=== PATIENT | male | born 1935 | race Caucasian/White ===

== ENCOUNTER 2024-02-17 01:54 | Inpatient (IN) | payer MEDICARE ==
[2024-02-17 04:45] LABS: BASOPHILS PERCENT AUTO 0.1 % (0.1-1.3); HEMATOCRIT 36.2 % (38.4-49.7); HEMOGLOBIN 13.1 g/dL (12.9-16.9); IMMATURE GRAN ABSOLUTE AUTO 0.08 K/uL (0.00-0.23); IMMATURE GRAN PERCENT AUTO 1.1 % (0.0-0.7); LYMPHOCYTES ABSOLUTE AUTO 0.56 K/uL (0.8-3.3); LYMPHOCYTES PERCENT AUTO 7.9 % (11.4-47.7); MEAN CORPUSCULAR HEMOGLOBIN 36.4 pg (31.6-35.5); MEAN CORPUSCULAR HGB CONC 36.2 g/dL (31.6-35.5); MEAN CORPUSCULAR VOLUME 100.6 fL (81.4-99.0); MONOCYTES ABSOLUTE AUTO 0.82 K/uL (0.20-0.90); MONOCYTES PERCENT AUTO 11.5 % (3.3-12.6); NEUTROPHILS ABSOLUTE AUTO 5.64 K/uL (1.0-7.6); NEUTROPHILS PERCENT AUTO 79.4 % (40.0-78.1); PLATELET COUNT,PLT 83 K/uL (130-375); WHITE BLOOD CELL COUNT,WBC 7.1 K/uL (3.2-11.0)
[2024-02-17 04:50] LABS: APPEARANCE,URINE SLIGHTLY CLOUDY (CLEAR); BILIRUBIN,URINE NEGATIVE (NEGATIVE); COLOR,URINE YELLOW (YELLOW); GLUCOSE,URINE NEGATIVE (NEGATIVE); KETONES,URINE 15 mg/dL (NEGATIVE); LEUKOCYTE ESTERASE,URINE LARGE (NEGATIVE); NITRITE,URINE NEGATIVE (NEGATIVE); OCCULT BLOOD,URINE SMALL (NEGATIVE); PROTEIN,URINE 30 mg/dL (NEGATIVE); UROBILINOGEN,URINE 0.2 EU/dL (0.2-1.0)
[2024-02-17 04:51] LABS: BASOPHILS ABSOLUTE AUTO 0.01 K/uL (0.00-0.10)
[2024-02-17 04:54] LABS: AMORPHOUS SEDIMENT,URINE NOT SEEN; BACTERIA,URINE FEW; EPITHELIAL CELLS,URINE NOT SEEN; MUCUS,URINE NOT SEEN; RBC,URINE 0-5 (0-5); WBC,URINE PACKED (0-5)
[2024-02-17] MEDS ORDERED: Acetaminophen 325 MG Tab PO PRN (05:05)
[2024-02-17] MEDS ORDERED: Bisacodyl 5 MG Tab PO PRN (05:05)
[2024-02-17] MEDS ORDERED: oxyCODONE 5 MG Tab PO PRN (05:05)
[2024-02-17] MEDS ORDERED: Morphine 2 MG/ML SYRINGE IVPUSH PRN (05:05)
[2024-02-17] MEDS ORDERED: Ondansetron 4 MG Tab.DIS PO PRN (05:05)
[2024-02-17] MEDS ORDERED: Docusate Sodium 100 MG Cap PO PRN (05:05)
[2024-02-17] MEDS ORDERED: Ondansetron 4 MG/2 ML SDV IV PRN (05:05)
[2024-02-17 05:06] LABS: A/G RATIO 0.7 (1.2-2.2); ALANINE AMINOTRANSFERASE,ALT 50 U/L (12-78); ALBUMIN 2.4 g/dL (3.4-5.0); ALKALINE PHOSPHATASE 84 U/L (46-116); AMYLASE 25 U/L (25-115); ASPARTATE AMNIOTRANSFERASE,AST 50 U/L (15-37); BILIRUBIN TOTAL 0.6 mg/dL (0.2-1.0); BLOOD UREA NITROGEN,BUN 17 mg/dL (7-18); CALCIUM 8.4 mg/dL (8.5-10.1); CARBON DIOXIDE,CO2 26 mmol/L (21-32); CHLORIDE,CL 104 mmol/L (100-108); EST CRCL DRUG DOSING (CG) 50.35 mL/min; ESTIMATED GFR 73 mL/min (>60); GLUCOSE RANDOM 112 mg/dL (74-106); MAGNESIUM 1.6 mg/dL (1.8-2.4); POTASSIUM,K 3.7 mmol/L (3.6-5.2); PROTEIN TOTAL,TP 5.7 g/dL (6.4-8.2); SODIUM,NA 138 mmol/L (140-148)
[2024-02-17 05:08] LABS: ANION GAP 11.7 mmol/L (5.0-14.0)
[2024-02-17] MEDS: Sodium Chloride 0.9% 1,000 ML IV SCH (05:53)
[2024-02-17] MEDS: Tamsulosin 0.4 MG Cap.ER PO SCH (08:16)
[2024-02-17] MEDS: Donepezil 10 MG Tab PO SCH (08:16)
[2024-02-17] MEDS: Cefdinir 300 MG Cap PO SCH (08:16)
[2024-02-17] MEDS: Nicotine 21 MG/24 Hr Patch TRDERM SCH (08:16)
[2024-02-17] MEDS: Rosuvastatin 10 MG Tab PO SCH (08:16)
[2024-02-17] MEDS: Pantoprazole 40 MG Tab.CR PO SCH (08:16)
[2024-02-17] MEDS: Acetaminophen 500 MG Tab PO SCH (08:27)
[2024-02-17] MEDS: Magnesium Oxide 400 MG Tab PO SCH (11:23)
[2024-02-17] MEDS: Amoxicillin/Clavulanate K 875-125 MG Tab PO SCH (20:20)
[2024-02-17] MEDS: Melatonin 3 MG Tab PO SCH (20:20)
[2024-02-18] MEDS: Trolamine Salicylate/Aloe Vera 10% Crm 85 GM Tube TOP PRN (08:10)
[2024-02-19] MEDS: Ibuprofen 600 MG Tab PO PRN (07:31)
[2024-02-19] MEDS ORDERED: Haloperidol 5 MG Tab PO PRN (21:05)
== END 2024-02-20 13:10 | disposition home or self-care (01) | DRG 552 ==
LOC: JP.ED 01:54 → JP.MS 04:18
PROVIDERS: ADMIT Nurse Practitioner; ATTEND Hospitalist
DX: S32.009A Unspecified fracture of unspecified lumbar vertebra, initial encounter for closed fracture (principal); M54.50 Low back pain, unspecified; N30.00 Acute cystitis without hematuria; F05 Delirium due to known physiological condition; E78.00 Pure hypercholesterolemia, unspecified; W19.XXXA Unspecified fall, initial encounter; I48.91 Unspecified atrial fibrillation; Z66 Do not resuscitate; G30.1 Alzheimer's disease with late onset; F02.80 Dementia in other diseases classified elsewhere, unspecified severity, without behavioral disturbance, psychotic disturbance, mood disturbance, and anxiety; H54.7 Unspecified visual loss; N40.1 Benign prostatic hyperplasia with lower urinary tract symptoms; R33.8 Other retention of urine; B96.89 Other specified bacterial agents as the cause of diseases classified elsewhere; R29.6 Repeated falls; F17.210 Nicotine dependence, cigarettes, uncomplicated; Z79.899 Other long term (current) drug therapy; Z96.649 Presence of unspecified artificial hip joint; W01.0XXA Fall on same level from slipping, tripping and stumbling without subsequent striking against object, initial encounter; Y92.091 Bathroom in other non-institutional residence as the place of occurrence of the external cause
CPT/HCPCS: 36415; 71250; 74176; 80053; 81001; 82150; 83735; 85025; 97110-GP; 97161-GP; 97165-GO; 97530-GP; 99223; 99233; 99238; 99285; A9270-GY; C1758; J7030